=== PATIENT | female | born 1945 | race Caucasian/White ===

== ENCOUNTER → 2019-11-08 14:45 | Outpatient (REF) | payer MEDICARE, OTHER, SELFPAY | LOC: ANHLAB 14:45 | PROVIDERS: PCP Internal Medicine; Visit Provider Nurse Practitioner | DX: L02.91 Cutaneous abscess, unspecified (principal); L72.0 Epidermal cyst | CPT/HCPCS: 88304 ==

== ENCOUNTER 2023-07-23 00:45 | Day surgery (SDC) | payer MEDICARE, OTHER, SELFPAY ==
--- NOTE | 2023-07-15 10:52 | PC.NURSE ---
Report to the Outpatient Waiting Room, entrance under the green pavilion located off [facility], at time _6:30 AM on date _07/23/23 . Planned Procedure Time: __7:30 AM . Time changes happen often and if your time is changed the preop area will call you the afternoon before. - You and your visitor will be asked to self-screen and do not enter if you have any COVID symptoms. - A mask is optional within the hospital at this time. MAY HAVE LIGHT BREAKFAST MORNING OF SURGERY Take the following medications with a SIP of water the morning of surgery: NONE DO NOT STOP ANY OF YOUR OTHER PRESCRIPTION MEDICATIONS PRIOR TO SURGERY ?EXCEPT THE FOLLOWING Medications to discontinue per physician NONE Date to take last dose Please no make-up, nail japanese, hairspray, perfume, deodorant, or body powder the day of surgery. No jewelry (including any body piercings) or valuables the day of surgery, leave them at home. Please take a shower or bath the night before, or the morning of, surgery with an antibacterial soap. Wear comfortable, loose fitting clothing. Children are encouraged to wear pajamas. - Jewelry must be removed prior to entering the operating room. Rings and piercings that are not removed may be cut off. - The hospital will not accept responsibility for valuables. - Please leave all valuables, including medications, at home the day of surgery. If you are going home after surgery, a licensed straddle bug driver must drive you home. - NO public transportation without another adult if you receive anesthesia. - We recommend that an adult stay with you for 24 hours following discharge. - We also recommend that you do not drive, make important decision, drink alcoholic beverages, or take any drugs that were not prescribed by your health care provider for at least 24 hours after your discharge time. LOCAL ANESTHESIA- MAY DRIVE YOURSELF HOME For Pediatric surgeries, we recommend two adults accompany the child home. Follow any additional instructions given to you from your surgeon. If you or anyone in your household have experienced Covid symptoms in the past week, please notify your surgeon or the nurse liaison at the phone number below for possible testing. Telephone instructions given to ____PT and asked if any additional questions and then verbalized understanding. Patient advised to call surgeon office or pre surgery nurse liaison [phone] if any additional questions.
[2023-07-15 10:58] VITALS: BMI 30.9
[2023-07-23] VITALS (7 sets, daily range): BP systolic 149–180; BP diastolic 59–81; PULSE 80–93; RESP 16–20; TEMP 36.7; O2SAT 96–99
--- NOTE | 2023-07-23 07:19 | WPDHPUPDATE1 ---
History and Physical Update Update Date/Time: 07/23/23 07:19 History and Physical has been reviewed, including an updated exam of the patient. There are NO changes in the patient's condition. Risks, benefits, and alternatives have been discussed and questions answered. Patient agrees to proceed with procedure.
[2023-07-23] MEDS: LIDO 1%/EPINEPHRINE 1:100,000 50 ML VIAL 15 ML INFILTRATE (08:02)
--- NOTE | 2023-07-23 08:52 | P.OP_ITS ---
Procedure Note - Detailed Date of Procedure 07/23/23 Pre-op Diagnosis bilateral carpal tunnel syndrome Post-op Diagnosis Same Procedure Performed Bilateral open carpal tunnel release Surgeon Hardik Christensen MD Anesthesia Local Description of Procedure Both carpal tunnel sites were marked on the patient's hands while in the holding area. She consented to bilateral surgery. Postop instructions were briefly reviewed with her and daughter. She was taken into the operating room and placed supine on the operating table. Both extremities were supported on arm boards and they were of prepped and draped in usual fashion. The 2 sites were marked for the incision and both were infiltrated with 1% lidocaine with epinephrine. Proximally 5 milliliter each. No tourniquet was utilized. The right side was done 1st with an incision as in the palm as marked. Blunt dissection revealed the palmar fascia. This and the transverse retinaculum were incised with a 15. Blade. Under 3 point retraction the ligament was divided distally and proximally for complete release. There was no unusual anatomy n oted. The skin was closed with interrupted 5 0 nylon suture. Attention was then turned to the left hand where an incision was made again without tourniquet. Blunt dissection revealed the palmar fascia. This and the transverse retinaculum were incised with a 15. Blade. Under 3 point retraction the ligament was divided distally and proximally for complete release. There was no unusual anatomy noted. The skin wound was closed with interrupted 5 0 nylon suture. A small bandage was applied to each wrist and hand using an Abraham bandage. The patient was discharged from the operating room in stable condition. Estimated Blood Loss 3 Drains No Packing No Pathology None sent Complications No immediate complications Condition Stable Disposition Same day
== END 2023-07-23 09:05 | disposition home or self-care (01) ==
PROVIDERS: Visit Provider Plastic Surgery
PROC: (CPT 64721; principal; 2023-07-23 07:30)
DX: G56.03 Carpal tunnel syndrome, bilateral upper limbs (principal)
CPT/HCPCS: 64721; A9270